=== PATIENT | female | born 1965 | race African-American/Black ===

== ENCOUNTER 2018-12-09 16:07 | Emergency (ER) | payer SELFPAY ==
[~2018-12-09] VITALS: Ht 170.2 cm; Wt 100.0 kg
[~2018-12-09 16:07] MED LIST: HYDROCHLOROT50 MG PO; LISINOPRIL20 MG PO; METFORMIN500 MG PO; PRAVASTATIN20 MG PO
[2018-12-09] MEDS ORDERED: EPIPEN 2-P0.3 MG/0.3 IM (17:01)
[2018-12-09] MEDS ORDERED: DELTASONE20 MG PO (17:01)
[2018-12-09 17:09] VITALS: BP 104/61
== END 2018-12-09 17:30 | disposition home or self-care (01) | DRG 916 ==
LOC: ED 16:07
DX: T78.40XA Allergy, unspecified, initial encounter (principal); E11.9 Type 2 diabetes mellitus without complications; I10 Essential (primary) hypertension; X58.XXXA Exposure to other specified factors, initial encounter

== ENCOUNTER 2018-12-10 19:06 | Emergency (ER) | payer SELFPAY ==
[~2018-12-10] VITALS: Ht 170.2 cm; Wt 95.0 kg
[~2018-12-10 19:06] MED LIST changes: +DELTASONE20 MG PO; +EPIPEN 2-P0.3 MG/0.3 IM
[2018-12-10 20:05] VITALS: BP 139/84
== END 2018-12-10 20:05 | disposition home or self-care (01) | DRG 607 ==
LOC: ED 19:06
DX: L50.9 Urticaria, unspecified (principal); E11.9 Type 2 diabetes mellitus without complications; I10 Essential (primary) hypertension

== ENCOUNTER 2020-11-15 08:41 | Day surgery (SDC) | payer OTHER ==
[~2020-11-15] VITALS: Ht 170.2 cm; Wt 77.0 kg
[2020-11-15] MEDS ORDERED: SIMVASTATIN5 MG PO (09:42)
[2020-11-15 09:55] LABS: ALBUMIN 4.5 g/dL (3.2-5.0); ALKALINE PHOSPHATASE 68 u/l (38-126); ANION GAP 15 (6-22 (CALC)); BILIRUBIN, TOTAL 0.9 mg/dL (0.0-1.4); BUN 18 mg/dL (7-17); BUN/CREATININE RATIO 26 (12-20 (CALC)); CARBON DIOXIDE 28 mmol/l (22-30); CHLORIDE 94 mmol/l (95-108); CREATININE 0.7 mg/dL (0.5-1.0); GFR > 60 ML/MIN (>=60 (CALC)); GFR FOR AFR.AMER. > 60 ML/MIN (>=60 (CALC)); SGOT/AST 26 u/l (14-36); SODIUM 134 mmol/l (137-146); TOTAL PROTEIN 8.2 g/dL (6.3-8.2)
[2020-11-15 09:57] LABS: HEMATOCRIT 43.8 % (37.0-47.0); HEMOGLOBIN 14.5 g/dl (12.0-16.0); MEAN CELL VOLUME 88.1 fL CALC (80.0-100.0); MEAN CORPUSCULAR HGB 29.2 pG CALC (26.0-32.0); MEAN CORPUSCULAR HGB CONC 33.1 g/dL CAL (32.0-36.0); NEUT# 3.23 thou/uL (2.00-7.15); RED BLOOD COUNT 4.97 mill/uL (4.20-5.60); RED CELL DISTRI WIDTH 13.3 % (11.5-15.5)
[2020-11-15 13:28] VITALS: BP 106/61
== END 2020-11-15 13:35 | disposition home or self-care (01) | DRG 394 ==
LOC: ED 08:41 → ED-I 10:41 → ED 10:50 → ORM 10:51
PROVIDERS: Family Medicine; ATTEND Surgery
PROC: 0DC38ZZ Extirpation of Matter from Lower Esophagus, Via Natural or Artificial Opening Endoscopic (ICD-10-PCS; principal; 2020-11-15)
PROC: 0D738ZZ Dilation of Lower Esophagus, Via Natural or Artificial Opening Endoscopic (ICD-10-PCS; 2020-11-15)
DX: T18.128A Food in esophagus causing other injury, initial encounter (principal); C85.90 Non-Hodgkin lymphoma, unspecified, unspecified site; J94.8 Other specified pleural conditions; K22.2 Esophageal obstruction; I10 Essential (primary) hypertension; E11.9 Type 2 diabetes mellitus without complications; K22.70 Barrett's esophagus without dysplasia; K21.9 Gastro-esophageal reflux disease without esophagitis; E78.5 Hyperlipidemia, unspecified; X58.XXXA Exposure to other specified factors, initial encounter; Z79.84 Long term (current) use of oral hypoglycemic drugs; Z20.822 Contact with and (suspected) exposure to COVID-19
CPT/HCPCS: J1100; J1610; Q9967

== ENCOUNTER 2021-06-27 10:18 | Observation (INO) | payer OTHER ==
[~2021-06-27] VITALS: Ht 160 cm; Wt 83.0 kg
[~2021-06-27 10:18] MED LIST changes: +HYDROCHLOROT25 MG PO; -HYDROCHLOROT50 MG PO; -LISINOPRIL20 MG PO; +METFORMIN HCL500 M1 PO; -METFORMIN500 MG PO; +SIMVASTATIN40 MG PO; +ZESTRIL40 MG PO
--- NOTE | 2021-06-27 10:18 | NUR ---
patient to room via ems stretcher. patient requested to go to the bathroom right away and ambulated to bathroom.
--- NOTE | 2021-06-27 10:26 | NUR ---
PATIENT BACK IN ROOM FROM BATHROOM, DR DEAN AT BEDSIDE TO ASSESS PATIENT. STROKE ALERT CALLED. PATIENT TAKEN TO CT SCAN AT 1027 IN STABLE CONDITION.
--- NOTE | 2021-06-27 10:43 | NUR ---
RETURNED TO ROOM VIA STRETCHER WITH NURSE AWAKE AND ALERT
[2021-06-27 10:46] LABS: GFR > 60 ML/MIN (>=60 (CALC)); GFR FOR AFR.AMER. > 60 ML/MIN (>=60 (CALC))
[2021-06-27] MEDS ORDERED: LISINOPRIL2.5 MG PO (10:46)
[2021-06-27] MEDS ORDERED: ASPIRIN81 MG PO (10:47)
[2021-06-27] MEDS ORDERED: LANTUS100 UNIT SC (10:48)
[2021-06-27 10:52] LABS: HEMATOCRIT 42.6 % (37.0-47.0); HEMOGLOBIN 13.8 g/dl (12.0-16.0); MEAN CELL VOLUME 88.6 fL CALC (80.0-100.0); MEAN CORPUSCULAR HGB 28.7 pG CALC (26.0-32.0); MEAN CORPUSCULAR HGB CONC 32.4 g/dL CAL (32.0-36.0); NEUT# 0.9 thou/uL (2.00-7.15); RED BLOOD COUNT 4.81 mill/uL (4.20-5.60); RED CELL DISTRI WIDTH 14.3 % (11.5-15.5)
[2021-06-27 10:57] LABS: URINE BILIRUBIN - DIPSTICK NEGATIVE (NEGATIVE); URINE BLOOD DIPSTICK TRACE-INTACT (NEGATIVE); URINE COLOR YELLOW; URINE GLUCOSE - DIPSTICK >=1000 mg/dL (NEGATIVE); URINE KETONE NEGATIVE (NEGATIVE); URINE LEUK ESTERASE NEGATIVE (NEGATIVE); URINE PROTEIN - DIPSTICK 100 mg/dL (NEG-TRACE); URINE UROBILINOGEN - DIPSTICK 0.2 E.U./dL (0.2)
[2021-06-27 10:58] LABS: URINE NITRITE - DIPSTICK NEGATIVE (Negative)
[2021-06-27 11:01] LABS: ALBUMIN 4.6 g/dL (3.2-5.0); ALKALINE PHOSPHATASE 61 u/l (38-126); BUN 15 mg/dL (7-17); BUN/CREATININE RATIO 20 (12-20 (CALC)); CARBON DIOXIDE 30 mmol/l (22-30); CHLORIDE 103 mmol/l (95-108); CREATININE 0.8 mg/dL (0.5-1.0); GFR > 60 ML/MIN (>=60 (CALC)); GFR FOR AFR.AMER. > 60 ML/MIN (>=60 (CALC)); SGOT/AST 27 u/l (14-36); TOTAL PROTEIN 8.3 g/dL (6.3-8.2)
[2021-06-27 11:03] LABS: ANION GAP 13 (6-22 (CALC)); BILIRUBIN, TOTAL 0.5 mg/dL (0.0-1.4); SODIUM 142 mmol/l (137-146)
[2021-06-27 11:06] LABS: URINE RBC 0-2 RBC/hpf (0-5)
[2021-06-27 11:12] LABS: ACT PARTIAL THROMBO TIME 23.6 SECONDS (20.0-32.5); INTERNATIONAL NORMALIZED RATIO 0.9 RATIO (0.7-1.3); PROTHROMBIN TIME 9.5 SECONDS (9.0-12.5)
[2021-06-27 11:13] LABS: MYOGLOBIN 36 ng/mL (0 - 62)
[2021-06-27] MEDS ORDERED: CENTURY VIT PO (12:18)
[2021-06-27] MEDS ORDERED: ESOMEPRAZOLE MA40 MG PO (12:18)
--- NOTE | 2021-06-27 13:02 | NUR ---
PATIENT SITTING BEDSIDE TALKING ON HER PHONE, DENIES ANY NEEDS AT THIS TIME. CALL LIGHT AND BEDSIDE TABLE WITHIN REACH.
[2021-06-27 13:59] LABS: ALBUMIN 4.8 g/dL (3.2-5.0); ALKALINE PHOSPHATASE 71 u/l (38-126); BILIRUBIN, TOTAL 0.5 mg/dL (0.0-1.4); C-REACTIVE PROTEIN < 0.5 mg/dL (0-0.9); CALCULATED LDLCHOLESTEROL 153 mg/dL (62-129 (CALC)); CHOLESTEROL HDL RATIO 2.7 (<4.4 (CALC)); HDL CHOLESTEROL 95 mg/dL (>=40); SGOT/AST 28 u/l (14-36); TOTAL CHOLESTEROL 261 mg/dl (0-199); TOTAL PROTEIN 8.8 g/dL (6.3-8.2); TOTAL TRIGLYCERIDES 63 mg/dl (30-149); VLDL CHOLESTROL 13 mg/dl (2-49 (CALC))
--- NOTE | 2021-06-27 14:04 | NUR ---
OCCUPATIONAL THERAPY CURRENTLY BEDSIDE WITH PATIENT
--- NOTE | 2021-06-27 15:58 | NUR ---
PATIENT OFFERED SNACK, TOLERATED FLUIDS AND SNACK WELL
--- NOTE | 2021-06-27 16:05 | NUR ---
REPORT ACOSTA TO ALICE HARMON
--- NOTE | 2021-06-27 17:05 | NUR ---
PATIENT TAKEN TO MED/SURG FLOOR ROOM 265
[2021-06-27 17:44] VITALS: BP 198/106
--- NOTE | 2021-06-27 18:31 | NUR ---
PATIENT IS RECEIVED FRON THE EMERGENCY ROOM. aLERT AND ORIENTED X3. NO DEFICIT IS OBSERVED. PATIENT REFERS PAIN IN THE RIGHT SHOULDER. VITAL SIGNS ARE EVALUATED. PATIENT WITH HIGH BLOOD PRESSURE. ADMINISTERED MEDICATION. PATIENT IS EDUCATED ABOUT ADMISSSION, SHE REFER UNDERSTAND.
--- NOTE | 2021-06-27 18:49 | NUR ---
notify nurse practitioner Cartee about parameters for vasotec. and pain medications
[2021-06-27 19:00] VITALS: BP 168/89
--- NOTE | 2021-06-27 20:30 | NUR ---
PATIENT RESTING IN BED AT THIS TIME-AWAKE ALERT AND ORIENTEDX3. PATIENT STATES THAT SHE CONT TO HAVE SOME BLURRED VISION TO RIGHT EYE AND SOME PAIN TO RIGHT SHOULDER. MEDICATED FOR PAIN TO RIGHT SHOULDER WITH ULTRAM 50MG PO. PATIENT IS ON ISOLATION FOR COVID. PATIENT WITH EQUAL HAND GRASPS. NO WEAKNESS TO EXTREMITIES. TELE MONITOR IN PLACE-LAST READING WAS SR-87. BP HAS IMPROVED. LUNGS ARE CLEAR. ABD IS SOFT WITH ACTIVE BS. DENIES ANY DIFFICULTY WITH URINATION. NO PERIPHERAL EDEMA NOTED. PULSES ARE PALPABLE. SALINE LOCKX2 PATENT AND FLUSHED. SAFETY PRECAUTIONS REINFORCED. CALL LIGHT IN REACH. WILL CONT TO MONITOR.
[2021-06-28] VITALS: BP 141/84
--- NOTE | 2021-06-28 00:45 | NUR ---
PATIENT RESTING IN BED AT THIS TIME-PATIENT PROVIDED WITH HS SNACK. TELE MONITOR IN PLACE WITH LAST READING SR-84. CALL LIGHT IN REACH. WILL CONT TO MONITOR.
--- NOTE | 2021-06-28 02:52 | NUR ---
PATIENT CALLED REQUESTING PAIN MEDS FOR RIGHT SHOULDER. TOO EARLY FOR PAIN MEDS AT THIS TIME. PATIENT STATES THAT SHE IS NOW HAS DOUBLE VISION BUT ONLY IN THE RIGHT EYE-NO OTHER CHANGES NEUROLOGICALLY. TELE MONITOR REMAINS INPLACE. PROVIDED WITH ADDITIONAL BLANKETS. SAFETY PRECAUTIONS REINFORCED. CALL LIGHT IN REACH. WILL CONT TO MONITOR.
[2021-06-28 04:00] VITALS: BP 142/87
[2021-06-28 05:50] LABS: ANION GAP 14 (6-22 (CALC)); BUN 14 mg/dL (7-17); BUN/CREATININE RATIO 21 (12-20 (CALC)); CARBON DIOXIDE 28 mmol/l (22-30); CHLORIDE 102 mmol/l (95-108); CREATININE 0.7 mg/dL (0.5-1.0); GFR > 60 ML/MIN (>=60 (CALC)); GFR FOR AFR.AMER. > 60 ML/MIN (>=60 (CALC)); POTASSIUM 4.1 mmol/l (3.5-5.1); SODIUM 140 mmol/l (137-146)
[2021-06-28 06:01] LABS: HEMATOCRIT 45.5 % (37.0-47.0); HEMOGLOBIN 14.9 g/dl (12.0-16.0); IMMATURE GRANULOCYTES 0.2 % (0.0-5.0); MEAN CELL VOLUME 88.5 fL CALC (80.0-100.0); MEAN CORPUSCULAR HGB CONC 32.7 g/dL CAL (32.0-36.0); NEUT# 1.72 thou/uL (2.00-7.15); RED BLOOD COUNT 5.14 mill/uL (4.20-5.60); RED CELL DISTRI WIDTH 14.4 % (11.5-15.5)
--- NOTE | 2021-06-28 07:25 | NUR ---
PATIENT SEEN FOR STROKE ALERT LKW 2200 ON 06/26/21. PATIENT STATES HAS PAIN AND TINGLING TO RIGHT SHOULDERM ARM AND STATES DOUBLE VISION. PATIENT STATES DOUBLE VISION DISAPPEARS WHEN SHE COVERS EITHER EYE. NIHSS 0 ALL 4 QUADRANTS ON VISUAL GRANT TESTED BILATERALLY NO BLURRED VISION OR DIPLOPIA NOTED. PATIENT ASKED TO IDENTIFY OBJECTS AND VERBALIZE WHAT SHE SAW ON NIHSS PICTURE. PATIENT ABLE TO IDENTIFY OBJECTS CORRECTLY FROM VARYING DISTANCES. ALL CRANIAL NERVE TESTING AND PATIENT HAD NO DEFICITS NOTED. NO DRIFTS IN UPPER OR LOWER EXTREMITIES, NO ATAXIA IN UPPER OR LOWER EXTREMITIES NOTED AT THIS TIME. NO ASPHASIA OR DYSARTHRIA AND SENSATION EQUAL AND INTACT. [facility] [employer] NOTIFIED OF FINDINGS AND NEUROLOGIST EXAM.
--- NOTE | 2021-06-28 07:30 | NUR ---
0650-RESPONDED TO PATIENT ROOM. PATIENT STATES THAT SHE IS NOW HAVING DOUBLE VISION INSTEAD OF THE BLURRED VISION THAT SHE COMPLAINED ABOUT YESTERDAY-PATIENT INSIST THAT THIS IS DIFFERENT FROM WHAT HER COMPLAINTS OF BLURRED VISION YESTERDAY. STROKE ALERT WAS CALLED AGAIN FOR CHANGE IN VISION COMPLAINTS. PATIENT WAS TRANSFERRED TO CT VIA BED AND NEUROTELE VISIT WAS DONE. 0730- PATIENT RETURNED TO ROOM VIA BED. PATIENT FOR MRI TODAY. REPORT GIVEN TO ONCOMING SHIFT. WILL CONT TO MONITOR.
[2021-06-28 08:00] VITALS: BP 171/86
[2021-06-28] MEDS ORDERED: NORVASC5 M1 PO (08:03)
[2021-06-28] MEDS ORDERED: NAPROXEN250 MG PO (08:04)
[2021-06-28 11:16] VITALS: BP 145/87
--- NOTE | 2021-06-28 12:12 | NUR ---
Patient medication reconciliation is complete, called the patient and spoke to her about her home medications. Patient states she has not been taking metformin 500 mg ever since her doctor started her on lantus about 6 months ago but she still has active prescription. Also, called patient's pharmacy [facility] spoke to Amalia for more information on patient's home medication list.
[2021-06-28 14:57] VITALS: BP 151/93
[2021-06-28 19:00] VITALS: BP 160/95
[2021-06-29] VITALS: BP 139/74
[2021-06-29 04:00] VITALS: BP 125/70
[2021-06-29 06:19] LABS: ANION GAP 13 (6-22 (CALC)); BUN 23 mg/dL (7-17); BUN/CREATININE RATIO 33 (12-20 (CALC)); CARBON DIOXIDE 29 mmol/l (22-30); CHLORIDE 100 mmol/l (95-108); CREATININE 0.7 mg/dL (0.5-1.0); GFR > 60 ML/MIN (>=60 (CALC)); GFR FOR AFR.AMER. > 60 ML/MIN (>=60 (CALC)); MAGNESIUM 1.8 mg/dL (1.6-2.3); POTASSIUM 4.3 mmol/l (3.5-5.1); SODIUM 137 mmol/l (137-146)
[2021-06-29 06:22] LABS: HEMATOCRIT 44.2 % (37.0-47.0); HEMOGLOBIN 14.3 g/dl (12.0-16.0); MEAN CELL VOLUME 89.5 fL CALC (80.0-100.0); MEAN CORPUSCULAR HGB 28.9 pG CALC (26.0-32.0); MEAN CORPUSCULAR HGB CONC 32.4 g/dL CAL (32.0-36.0); RED BLOOD COUNT 4.94 mill/uL (4.20-5.60); RED CELL DISTRI WIDTH 14.4 % (11.5-15.5)
--- NOTE | 2021-06-29 07:43 | NUR ---
REPORT RECEIVED FROM HEAD ATHLETIC TRAINER NURSE, PT AWAKE ALERT AND APPROPRIATE. VSS, DENIES SOB OR DISCOMFORT. POC DISCUSSED WITH PT, PT STATES UNDERSTANDING. PT ADMITS TO HAVING DOUBLE VISION WITH ITEMS THAT ARE FARTHER AWAY RATHER THAN UP CLOSE. PT STATES "I CAN SEE THE TOP HALF OF THE TV, BUT THE BOTTOM HALF IS ALMOST SIDEWAYS." NIH SCALE PREFORMED. CALL LIGHT WITHIN REACH. INSTRUCTED PT TO CALL FOR ASSISTANCE, VERBALIZES UNDERSTANDING.
[2021-06-29 07:45] VITALS: BP 134/75
[2021-06-29 10:46] VITALS: BP 139/77
--- NOTE | 2021-06-29 12:00 | NUR ---
PT RESTING IN ROOM. DOES ADMIT TO HAVING BLURRED VISION. NEURO TELE TO MAKE ROUNDS AT 1400. PT VSS, DENIES PAIN, SOB OR DISCOMFORT. INSTRUCTED PT TO CALL FOR ASSISTANCE. STATES UNDERSTANDING.
--- NOTE | 2021-06-29 15:45 | NUR ---
PT OFF THE FLOOR AT THIS TIME FOR MRI. STABLE AT TIME OF DEPARTURE.
--- NOTE | 2021-06-29 16:51 | NUR ---
PT ARRIVED BACK FROM RADIOLOGY PROCEDURE IN STABLE CONDITION. ASSISTED BACK TO BED SAFELY, TELEMETRY REPLACED. PT DENIES PAIN, SOB OR DISCOMFORT. INSTRUCTED PT TO CALL FOR ASSISTANCE, VERBALIZES UNDERSTANDING.
[2021-06-29 17:20] VITALS: BP 139/93
[2021-06-29 19:00] VITALS: BP 131/87
--- NOTE | 2021-06-29 19:40 | NUR ---
PT RESTING IN BED, NO SIGNS OF DISTRESS NOTED, RESP EVEN AND UNLABORED. PT ALERT AND ORIENTED X3, NO EDEMA, DISCUSSED POC, PT PT VOICES NO NEEDS OR COMPLAINTS AT THIS TIME, ASSESSMENT REVIEW COMPLETED, CALL LIGHT IN REACH,CONTINUE TO MONITOR.
--- NOTE | 2021-06-29 20:40 | NUR ---
PT RESTING IN BED WATCHING TV, NO SIGNS OF DISTRESS NOTED, RESP EVEN AND UNLABORED, PT C/O PAIN 8/10 TO R SHOULDER, MEDICATED PER MAR, NIH 0, BUT PT STILL C/O DIPLOPIA BUT NO VISUAL LOSS. CALL LIGHT IN REACH,CONTINUE TO MONITOR.
[2021-06-30] VITALS: BP 98/69
--- NOTE | 2021-06-30 | NUR ---
PT RESTING IN BED, NO COMPLAINTS AT THIS TIME, CALL LIGHT IN REACH,CONTINUE TO MONITOR.
--- NOTE | 2021-06-30 03:55 | NUR ---
PT RESTING IN BED, EASILY AROUSED TO VERBAL STIMULI, NO SIGNS OF DISTRESS NOTED, RESP EVEN AND UNLABORED. VOICES NO NEEDS OR COMPLAINTS AT THIS TIME, NIH-0, CALL LIGHT IN REACH,CONTINUE TO MONITOR.
[2021-06-30 04:00] VITALS: BP 106/66
[2021-06-30 06:16] LABS: HEMATOCRIT 42.2 % (37.0-47.0); HEMOGLOBIN 13.6 g/dl (12.0-16.0); MEAN CELL VOLUME 90.4 fL CALC (80.0-100.0); MEAN CORPUSCULAR HGB 29.1 pG CALC (26.0-32.0); MEAN CORPUSCULAR HGB CONC 32.2 g/dL CAL (32.0-36.0); NEUT# 2.33 thou/uL (2.00-7.15); RED BLOOD COUNT 4.67 mill/uL (4.20-5.60); RED CELL DISTRI WIDTH 14.4 % (11.5-15.5)
[2021-06-30 06:17] LABS: URINE BILIRUBIN - DIPSTICK NEGATIVE (NEGATIVE); URINE BLOOD DIPSTICK NEGATIVE (NEGATIVE); URINE COLOR YELLOW; URINE GLUCOSE - DIPSTICK NEGATIVE (NEGATIVE); URINE KETONE TRACE mg/dL (NEGATIVE); URINE LEUK ESTERASE NEGATIVE (NEGATIVE); URINE PROTEIN - DIPSTICK NEGATIVE (NEG-TRACE); URINE SPECIFIC GRAVITY >=1.030; URINE UROBILINOGEN - DIPSTICK 0.2 E.U./dL (0.2)
--- NOTE | 2021-06-30 06:26 | NUR ---
PT AM GLUCOSE METER CHECK IS 66, PT PROVIDED WITH ORANGE JUICE WITH ADDED SUGAR, NO SIGNS OF DISTRESS NOTED, RESP EVEN AND UNLABORED. CALL LIGHT IN REACH,CONTINUE TO MONITOR.
[2021-06-30 06:35] LABS: POTASSIUM 4.7 mmol/l (3.5-5.1)
[2021-06-30 06:36] LABS: URINE NITRITE - DIPSTICK NEGATIVE (Negative)
[2021-06-30 06:38] LABS: CREATININE 1.8 mg/dL (0.5-1.0)
[2021-06-30 06:45] LABS: URINE BACTERIA MANY hpf; URINE SQUAMOUS EPITHELIAL CELL FEW EPI/hpf (0-FEW)
[2021-06-30 07:49] VITALS: BP 129/77
--- NOTE | 2021-06-30 08:00 | NUR ---
SHIFT CHANGE REPORT, PT AWAKE ALERT AND ORIENTED SITTING UP AT BEDSIDE, NO C/O DISCOMFORT BUT DIS C/O BEING DIABETIC AND NOT HAVING SUPPER MEAL SERVED TO HER TILL MINS TO SEVEN LAST EVENING, ADVISED WILL ADDRESS CONCERNS AND APOLOGIZED TO HER FOR HAVING THAT EXPERIENCE. TELE MONITOR IN PLACE, CALL BLANK IN REACH AND BED LOCKED IN LOWEST POSITION.
[2021-06-30 10:00] VITALS: BP 108/68
--- NOTE | 2021-06-30 11:53 | NUR ---
SITTING UP ON SIDE OF BED, MD ROUNDED AND DISCUSED PLAN OF CARE, PT STATED UNDERSTANDING, ALL NEEDS ADDRESSED.
[2021-06-30 14:18] LABS: CREATININE 1.3 mg/dL (0.5-1.0); POTASSIUM 4.2 mmol/l (3.5-5.1)
--- NOTE | 2021-06-30 15:42 | NUR ---
RESTING IN BED AND CONVERSING ON PHONE AT THIS TIME, ALL NEEDS MET/ADDRESSED.
[2021-06-30 16:02] VITALS: BP 98/66
--- NOTE | 2021-06-30 17:39 | NUR ---
RESTING IN BED INFORMED OF NEW ORDERS WRITTEN BY AND STATES UNDERSTANDING, ORDERS EXECUTED.
[2021-06-30 20:01] VITALS: BP 94/61
--- NOTE | 2021-06-30 21:54 | NUR ---
PATIENT RESTING IN BED AT THIS TIME WITH LIGHTS OUT. EASY TO AROUSE-AWAKE ALERT AND ORIENTEDX3. PATIENT CONT TO C/O VISUAL PROBLEMS-NO CHANGES. TO F/UP WITH OPTOMETRY WHEN DISCHARGED. CONT TO BE ON ISOLATION FOR COVID. PATIENT WITH ONLY OCC PRODUCTIVE COUGH WITH CLEAR SECREATIONS. LUNGS ARE CLEAR. O2 SAT IS 99% ON RA. IVF PATENT AND INFUSING VIA RAC SITE AT 80CC/HR. TELE MONITOR IN PLACE WITH LAST READING SRT-90. MEDICATED WITH MOM FOR CONSTIPATION. PATIENT STATES THAT SHE ONLY HAD SMALL HARD BM TODAY. DENIES ANY PROBLEMS WITH URINATION. NO PERIPHERAL EDEMA NOTED-PULSES PALPABLE. MEDICATED PATIENT WITH ULTRAM FOR RIGHT SHOULDER PAIN-7/10 ON PAIN SCALE. GLUCOSE [id number] WITH HUMALOG 1UNIT SQ PER SS C[employer]AGE PROTOCOL. SAFETY PRECAUTIONS REINFORCED. CALL LIGHT IN REACH. WILL CONT TO MONITOR.
--- NOTE | 2021-06-30 23:52 | NUR ---
PATIENT FOUND HALF WAY OOB-MAX ASSIST BACK INTO BED. AZITHRO HUNG ORDERED VIA LEFT WRIST ORDERED. SITE REMAINS HEALTHY. TELE MONITOR IN PLACE. O2 REAPPLIED VIA NASAL CANNULA AT 2LPM. BED ALARM IN PLACE FOR PATIENT SAFETY. CALL LIGHT IN REACH. WILL CONT TO MONITOR.
--- NOTE | 2021-06-30 23:55 | NUR ---
PATIENT RESTING IN BED AT THIS TIME WITH EYES CLOSED. RESPS ARE EVEN AND UNLABORED. IVF NS PATENT AND INFUSING VIA RAC SITE AT 80CC/HR. TELE MONITOR IN PLACE. CALL LIGHT IN REACH. WILL CONT TO MONITOR.
[2021-07-01 00:30] VITALS: BP 96/63
--- NOTE | 2021-07-01 04:06 | NUR ---
PATIENT POSITIONED ON RIGHT SIDE WITH EYES CLOSED. RESPS ARE EVEN AND UNLABORED. IVF PATENT AND INFUSING VIA RAC SITE AT 80CC/HR. SITE REMAINS HEALTHY AT THIS TIME. TELE MONITOR IN PLACE. CALL LIGHT IN REACH. WILL CONT TO MONITOR.
[2021-07-01 04:32] VITALS: BP 96/57
[2021-07-01 05:43] LABS: HEMATOCRIT 39.4 % (37.0-47.0); HEMOGLOBIN 12.6 g/dl (12.0-16.0); IMMATURE GRANULOCYTES 0.2 % (0.0-5.0); MEAN CELL VOLUME 89.5 fL CALC (80.0-100.0); MEAN CORPUSCULAR HGB 28.6 pG CALC (26.0-32.0); NEUT# 1.74 thou/uL (2.00-7.15); RED BLOOD COUNT 4.4 mill/uL (4.20-5.60); RED CELL DISTRI WIDTH 14.4 % (11.5-15.5)
[2021-07-01 06:04] LABS: ANION GAP 8 (6-22 (CALC)); BUN 33 mg/dL (7-17); BUN/CREATININE RATIO 39 (12-20 (CALC)); CARBON DIOXIDE 32 mmol/l (22-30); CHLORIDE 102 mmol/l (95-108); CREATININE 0.9 mg/dL (0.5-1.0); GFR > 60 ML/MIN (>=60 (CALC)); GFR FOR AFR.AMER. > 60 ML/MIN (>=60 (CALC)); POTASSIUM 4.4 mmol/l (3.5-5.1); SODIUM 137 mmol/l (137-146)
[2021-07-01 08:00] VITALS: BP 128/69
--- NOTE | 2021-07-01 08:00 | NUR ---
ASSESSMENT AND VITALS ALLOWED AT THIS TIME. LUNG SOUNDS ARE DIMINISHED UPPER/LOWER LOBES ANTERIOR AND POSTERIOR. HEART SOUNDS ARE REGULAR. TELE MONITOR IN PLACE. CONTINOUS MONITORING BY ED. BOWEL SOUNDS ACTIVE X4. PT IS A&O X3. STATES NO PAIN AT THIS TIME. IV IS ON THE 20G RAC INFUSING NS PER EMAR. FLUSHED WITH NO RESISTANCE. FALL/SAFTEY PRECAUTIONS IN PLACE. CALL LIGHT WITHIN REACH
[2021-07-01 11:16] VITALS: BP 121/69
--- NOTE | 2021-07-01 12:04 | NUR ---
PT ON THE PHONE UPON ENTERING ROOM. STATES NO PAIN AT THIS TIME. TELE MONITOR IN PLACE. IV PATENT INFUSING NS PER EMAR. CALL LIGHT WITHIN REACH FALL/SAFETY PRECAUTIONS IN PLACE.
--- NOTE | 2021-07-01 14:01 | NUR ---
S- pt continues to report visual complaints. Stated she was going home today. 0- Pt resting in bed, she rolled indep, moved supine to and from sit indep. Sit to stand with supervion and no LOB noted. She ambulated approx 80' in room with supervision with therapist moving IV pole. LE ex performed in supine 2 x10 reps. Standing side steppine, tandum and SLS performed. Pt was able to move sit to stand for bed at lowest position x 10 reps. SLS 15 sec on either foot. 02 sats 99% though out activity HR [id number]. Pt denied SOB. Time spent with pt 40 min. A- Pt with improved mpbility AMPAC 20. Home P- Pt to be seen until d/c.
[2021-07-01 15:00] VITALS: BP 114/68
--- NOTE | 2021-07-01 16:14 | NUR ---
Discharge instructions given. Patient verbalizes understanding of same. Discharged in stable condition via Wheelchair to Home with staff SOCORRO DANIEL. All belongings sent with pt. IV REMOVED CATHETER INTACT. TELE MONITOR REMOVED.
== END 2021-07-01 16:10 | disposition home or self-care (01) | DRG 123 ==
LOC: ED 10:18 → ED-I 12:25 → ED 13:00 → MS2 13:01
PROVIDERS: Internal Medicine; Nurse Practitioner; ADMIT Internal Medicine; ATTEND Internal Medicine
DX: H53.2 Diplopia (principal); R20.0 Anesthesia of skin; U07.1 COVID-19; N17.9 Acute kidney failure, unspecified; I10 Essential (primary) hypertension; E11.9 Type 2 diabetes mellitus without complications; E78.5 Hyperlipidemia, unspecified; I65.23 Occlusion and stenosis of bilateral carotid arteries; R91.8 Other nonspecific abnormal finding of lung field; Z79.84 Long term (current) use of oral hypoglycemic drugs; Z79.4 Long term (current) use of insulin; Z79.82 Long term (current) use of aspirin; Z85.72 Personal history of non-Hodgkin lymphomas
CPT/HCPCS: A9579; G0378; J1650; Q9967

== ENCOUNTER 2024-08-01 06:54 | Emergency (ER) | payer BC ==
[~2024-08-01] VITALS: Ht 160 cm; Wt 78.5 kg
[~2024-08-01 06:54] MED LIST changes: +ASPIRIN81 MG PO; +ATORVASTATIN CA10 MG PO; +CENTURY VIT PO; +ESOMEPRAZOLE MA40 MG PO; +JANUVIA100 MG PO; +LANTUS100 UNIT SC; +LISINOPRIL2.5 MG PO; +NAPROXEN250 MG PO; +NORVASC5 M1 PO; +PLAVIX75 MG PO; +PROTONIX40 M2 PO; +TAM75CAP PO
[2024-08-01] MEDS ORDERED: ZPAK PO (08:13)
[2024-08-01 08:16] VITALS: BP 147/84
== END 2024-08-01 08:17 | disposition home or self-care (01) | DRG 153 ==
LOC: ED 06:54
DX: J06.9 Acute upper respiratory infection, unspecified (principal); C85.90 Non-Hodgkin lymphoma, unspecified, unspecified site; I10 Essential (primary) hypertension; E11.9 Type 2 diabetes mellitus without complications; E78.5 Hyperlipidemia, unspecified; Z79.84 Long term (current) use of oral hypoglycemic drugs; Z20.822 Contact with and (suspected) exposure to COVID-19